=== PATIENT | male | born 1945 | race Two or more races ===

== ENCOUNTER 2024-09-05 16:16 | Inpatient (IN) | payer OTHER, MEDICARE, SELFPAY ==
[2024-09-05] VITALS (20 sets, daily range): BP systolic 145–167; BP diastolic 51–68; PULSE 55–92; TEMP 36.4–36.7; O2SAT 98–100; BMI 16.6; BMI 19.0
--- NOTE | 2024-09-05 17:17 | ECG_ITS ---
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 Measurements Intervals [place] Rate: 68 P: 73 AL: 148 QRS: 78 QRSD: 128 T: 70 QT: 450 QTc: 467 Interpretive Statements 1100 Sinus rhythm 1470 with occasional supraventricular premature complexes 2450 Right bundle branch block 9150 abnormal ECG Compared to ECG 03/13/2017 22:25:42 Right bundle-branch block now present Electronically Signed On 09-06-2024 12:05:11 EDT by JOHN GOODMAN M.D.
[2024-09-05] MEDS: 0.9 % SODIUM CHLORIDE 1,000 ML 1000 ML IV ×2 (17:35→18:39)
--- NOTE | 2024-09-05 17:50 | ED_ITS ---
HPI HPI - General Adult General Chief complaint: Weakness Stated complaint: L KNEE PAIN, SORE THROAT Time Seen by Provider: 09/05/24 16:53 Source: patient and family Mode of arrival: Wheelchair Limitations: altered mental status History of Present Illness HPI narrative: 79-year-old male was brought to emergency room accompanied with his sister. Sister went to do a wellness check on this patient and found him to be soiled in feces which is dried. Patient's house is very unkept son lives with him has multiple cats and does not help take care of this patient. Patient is very quiet he denies feeling unsafe at home but he does very unkept he has bedsores on his bottom and has a new open wound on the left knee you cannot tell me what happened to his knee. His vital signs are stable. He states he had several days of diarrhea. He cannot give me any length of time. Sister that brought him in is very concerned for his wellbeing. Related Data Allergies Allergy/AdvReac Type Severity Reaction Status Date / Time No Known Drug Allergies Allergy Verified 09/05/24 17:26 Review of Systems ROS Status of ROS 10 or more systems reviewed and unremark able except as noted in history and below PFSH PFSH Social History Little interest or pleasure in doing things: not at all Feeling down, depressed, or hopeless: not at all Exam Narrative Exam Narrative: All Systems are negative except as noted/marked.All systems reviewed and otherwise negative Nurses note and vital signs reviewed and patient is not hypoxic. General: The patient appears unkept smells of feces and cat urine. patient lying comfortable on cot Skin: Warm, dry, no pallor noted. bed sore to back and buttock. open wound to left knee Head: Normocephalic, atraumatic Eye: Normal conjunctiva, no drainage, EOMI. PERRL Ears, Nose, Mouth, and Throat: oral mucosa is moist. Nares patent. Mouth without vesicles. Ear canals patent. Tm's without Erythema Cardiovascular: Regular Rate and Rhythm Respiratory: Patient is in no distress, no accessory muscle use, lungs are clear to auscultation, no wheezing, rales or rhonchi Back: non-tender, no CVA tenderness bilaterally to percussion. GI: Normal bowel sounds, no tenderness to palpation, no masses appreciated. No rebound, guarding, or rigidity noted. Musculoskeletal: open wound to left knee 3x 2cm with some induration. The patient has no evidence of calf tenderness, no pitting edema, symmetrical pulses noted bilaterally Neurological: A&O x3 , normal speech Psychiatric: Cooperative Constitutional Vital Signs, click to edit/add: Last Vital Signs Temp 97.6 F 09/05/24 17:11 Pulse 80 09/05/24 19:20 Resp 19 09/05/24 19:20 BP 164/68 H 09/05/24 19:00 Pulse Ox 100 09/05/24 19:20 O2 Del Method Room Air 09/05/24 17:48 Course Vital Signs Vital signs: Vital Signs Temperature 97.6 F 09/05/24 17:11 Pulse Rate 70 09/05/24 17:11 Respiratory Rate 20 09/05/24 17:11 Blood Pressure 152/66 H 09/05/24 17:11 Pulse Oximetry 100 09/05/24 17:11 Oxygen Delivery Method Room Air 09/05/24 17:11 Temperature 97.6 F 09/05/24 17:11 Pulse Rate 80 09/05/24 19:20 Respiratory Rate 19 09/05/24 19:20 Blood Pressure 164/68 H 09/05/24 19:00 Pulse Oximetry 100 09/05/24 19:20 Oxygen Delivery Method Room Air 09/05/24 17:48 Medical Decision Making MDM Narrative Medical decision making narrative: 79-year-old male was brought to emergency room accompanied with his sister. Sister went to do a wellness check on this patient and found him to be soiled in feces which is dried. Patient's house is very unkept son lives with him has multiple cats and does not help take care of this patient. Patient is very quiet he denies feeling unsafe at home but he does very unkept he has bedsores on his bottom and has a new open wound on the left knee you cannot tell me what happened to his knee. His vital signs are stable. He states he had several days of diarrhea. He cannot give me any length of time. Sister that brought him in is very concerned for his wellbeing. Patient arrived to the emergency room accompanied with his sister he was covered in feces and smelled of cat urine. Patient's sister states his house is very unkept. Son lives with him but does not help take care of him. Patient has buttock ulceration that is healed as well as 2 on his back. He also has an open wound on his left knee. X-ray performed today showed no acute abnormality. On arrival IV was established patient's blood work was ordered including CBC CMP troponin lactic acid and CK-MB. BUN is elevated at 50 creatinine is 1.84 his lactate was elevated at 5.0 urine showed a 20-50 WBC with moderate amount of bacteria. Stool occult was negative. Patient was given 2 L of IV fluids, and Rocephin started in the emergency room. human services professional does also need to be consulted in regards to this patient's wellbeing and care. Family members are concerned for his wellbeing. Patient is a [facility] I did attempt to call [facility] they have not called us back for his admission. He will be manage here to the hospital with acute kidney injury, dehydration, UTI. Differential Diagnosis Differential Diagnosis: weakness, diarrhea, adult protective services Medical Records Medical records reviewed: Yes I reviewed the patient's medical records Lab Data Lab results reviewed: Yes I reviewed the patient's lab results Labs: Lab Results 09/05/24 09/05/24 09/05/24 Range/Units 17:30 17:38 19:20 WBC 9.8 (4.0-11.0) 10^3/uL RBC 3.87 L (4.70-6.10) 10^6/uL Hgb 10.5 L (14.0-18.0) g/dL Hct 32.9 L (42.0-54.0) % MCV 85.0 (80.0-94.0) fL MCH 27.1 (25.9-34.0) pg MCHC 31.9 (29.9-35.2) g/dL RDW 17.6 H (11.0-15.0) % Plt Count 296 (150-450) 10^3/uL MPV 11.4 (9.5-13.5) fL Neut % (Auto) 79.4 H (43.0-75.0) % Lymph % (Auto) 13.1 L (20.5-60.0) % [place] % (Auto) 5.9 (1.7-12.0) % Eos % (Auto) 0.8 L (0.9-7.0) % Baso % (Auto) 0.3 (0.2-2.0) % Neut # (Auto) 7.8 H (1.4-6.5) 10^3/uL Lymph # (Auto) 1.3 (1.2-3.8) 10^3/uL [place] # (Auto) 0.6 (0.3-0.8) 10^3/uL Eos # (Auto) 0.1 (0.0-0.7) 10^3/uL Baso # (Auto) 0.0 (0.0-0.1) 10^3/uL Abs Immat Gran (auto) 0.05 H (0.00-0.03) 10^3/uL Imm/Tot Granulo (auto) 0.5 (0.0-0.5) % Sodium 136 (136-145) mmol/L Potassium 3.6 (3.5-5.1) mmol/L Chloride 99 (98-107) mmol/L Carbon Dioxide 21.3 (21.0-32.0) mmol/L Anion Gap 19.3 BUN 50.0 H (7.0-18.0) mg/dL Creatinine 1.84 H (0.70-1.30) mg/dL Est GFR ( Amer) 43 L (>=60 mL/min/1.73m^2) Est GFR (Non-Af Amer) 36 L (>=60 mL/min/1.73m^2) BUN/Creatinine Ratio 27.2 Glucose 324 H (74-106) mg/dL Lactate 5.0 H* (0.4-2.0) mmol/L Calcium 9.0 (8.5-10.1) mg/dL Total Bilirubin 0.4 (0.2-1.0) mg/dL AST 22 (15-37) U/L ALT 24 (16-63) U/L Alkaline Phosphatase 112 (46-116) U/L Total Creatine Kinase 280 (39-308) U/L CK-MB (CK-2) 2.49 (<=3.60) ng/mL Troponin I High Sens 5.3 (4.0-76.1) pg/mL Total Protein 6.8 (6.4-8.2) g/dL Albumin 2.9 L (3.4-5.0) g/dL Globulin 3.9 g/dL Albumin/Globulin Ratio 0.7 Urine Color Lt yellow (YELLOW) Urine Clarity Slightly cloudy A (CLEAR) Urine pH 6.0 (5.0-9.0) Ur Specific [place] <=1.005 A (1.005-1.025) Urine Protein Negative (NEG/TRACE) mg/dL Urine Glucose (UA) >=1000 A (NEGATIVE) mg/dL Urine Ketones Negative (NEGATIVE) mg/dL Urine Occult Blood Trace-i (NEGATIVE) Urine Nitrite Negative (NEGATIVE) Urine Bilirubin Negative (NEGATIVE) Urine Urobilinogen 0.2 (0.2-1.0) EU/dL Ur Leukocyte Esterase Moderate A (NEGATIVE) Urine RBC 0-2 (0-2) #/HPF Urine WBC 20-50 A (NONE SEEN) #/HPF Ur Squamous Epith Cells None seen (NONE/RARE) #/LPF Urine Crystals None seen (None Seen) #/HPF Urine Bacteria Large A (NONE SEEN) #/HPF Urine Casts None seen (NONE SEEN) #/LPF Urine Mucus None seen (NONE SEEN) Ur Culture Indicated? Yes-[facility] [place] Stool Occult Blood Negative Streptococcus Screen 09/05/24 Range/Units 19:28 WBC (4.0-11.0) 10^3/uL RBC (4.70-6.10) 10^6/uL Hgb (14.0-18.0) g/dL Hct (42.0-54.0) % MCV (80.0-94.0) fL MCH (25.9-34.0) pg MCHC (29.9-35.2) g/dL RDW (11.0-15.0) % Plt Count (150-450) 10^3/uL MPV (9.5-13.5) fL Neut % (Auto) (43.0-75.0) % Lymph % (Auto) (20.5-60.0) % [place] % (Auto) (1.7-12.0) % Eos % (Auto) (0.9-7.0) % Baso % (Auto) (0.2-2.0) % Neut # (Auto) (1.4-6.5) 10^3/uL Lymph # (Auto) (1.2-3.8) 10^3/uL [place] # (Auto) (0.3-0.8) 10^3/uL Eos # (Auto) (0.0-0.7) 10^3/uL Baso # (Auto) (0.0-0.1) 10^3/uL Abs Immat Gran (auto) (0.00-0.03) 10^3/uL Imm/Tot Granulo (auto) (0.0-0.5) % Sodium (136-145) mmol/L Potassium (3.5-5.1) mmol/L Chloride (98-107) mmol/L Carbon Dioxide (21.0-32.0) mmol/L Anion Gap BUN (7.0-18.0) mg/dL Creatinine (0.70-1.30) mg/dL Est GFR ( Amer) (>=60 mL/min/1.73m^2) Est GFR (Non-Af Amer) (>=60 mL/min/1.73m^2) BUN/Creatinine Ratio Glucose (74-106) mg/dL Lactate (0.4-2.0) mmol/L Calcium (8.5-10.1) mg/dL Total Bilirubin (0.2-1.0) mg/dL AST (15-37) U/L ALT (16-63) U/L Alkaline Phosphatase (46-116) U/L Total Creatine Kinase (39-308) U/L CK-MB (CK-2) (<=3.60) ng/mL Troponin I High Sens (4.0-76.1) pg/mL Total Protein (6.4-8.2) g/dL Albumin (3.4-5.0) g/dL Globulin g/dL Albumin/Globulin Ratio Urine Color (YELLOW) Urine Clarity (CLEAR) Urine pH (5.0-9.0) Ur Specific [place] (1.005-1.025) Urine Protein (NEG/TRACE) mg/dL Urine Glucose (UA) (NEGATIVE) mg/dL Urine Ketones (NEGATIVE) mg/dL Urine Occult Blood (NEGATIVE) Urine Nitrite (NEGATIVE) Urine Bilirubin (NEGATIVE) Urine Urobilinogen (0.2-1.0) EU/dL Ur Leukocyte Esterase (NEGATIVE) Urine RBC (0-2) #/HPF Urine WBC (NONE SEEN) #/HPF Ur Squamous Epith Cells (NONE/RARE) #/LPF Urine Crystals (None Seen) #/HPF Urine Bacteria (NONE SEEN) #/HPF Urine Casts (NONE SEEN) #/LPF Urine Mucus (NONE SEEN) Ur Culture Indicated? Stool Occult Blood Streptococcus Screen Negative Imaging Data Chest x-ray: Radiologist's impression: ITS Impressions Chest X-Ray 09/05/24 18:05 IMPRESSION: NEGATIVE ACUTE PLEURAL-PARENCHYMAL DISEASE. Impression dictated by: Ru Barreto M.D. 09/05/2024 6:13 PM Dictation Location: [employer]Tell Electronically authenticated by: [id number] Y Date: 09/05/2024 18:13 Knee X-Ray 09/05/24 18:05 IMPRESSION: Joint effusion. Otherwise negative acute osseous abnormality. Impression dictated by: Ru Barreto M.D. 09/05/2024 6:12 PM Dictation Location: [employer] Electronically authenticated by: [id number] Y Date: 09/05/2024 18:12 ECG Data Attestation: ?I have reviewed the pertinent ECG results. Interpretation: 1721 EKG shows a sinus rhythm with a rate of 68 bpm UT interval 148 ms QRS duration 128 ms PVCs noted with right bundle branch block Discharge Plan Discharge Chief Complaint: Weakness Clinical Impression: Dehydration, UTI (urinary tract infection), Acute kidney injury Patient Disposition: Admitted As Inpatient Time of Disposition Decision: 20:03 Condition: Good
[2024-09-05 17:51] LABS: Hematocrit 32.9 % (42.0-54.0); Hemoglobin 10.5 g/dL (14.0-18.0); Immature Granulocytes Abs Auto 0.05 10^3/uL (0.00-0.03); Immature Granulocytes Pct Auto 0.5 % (0.0-0.5); Lymphocytes Absolute Auto 1.3 10^3/uL (1.2-3.8); Mean Corpuscular HGB Conc 31.9 g/dL (29.9-35.2); Mean Corpuscular Hemoglobin 27.1 pg (25.9-34.0); Mean Corpuscular Volume 85.0 fL (80.0-94.0); Platelet Count 296 10^3/uL (150-450); Red Blood Count 3.87 10^6/uL (4.70-6.10); White Blood Count 9.8 10^3/uL (4.0-11.0)
--- NOTE | 2024-09-05 18:05 | XR_ITS ---
[address] [address] Patient Name: JAH CLARK MRN: [id number] date: 1945 Sex: M Assigned Patient Location: ER Current Patient Location: ER Accession/Order Number: [id number] Exam Date: 09/05/2024 18:12 Report Date: 09/05/2024 18:13 At the request of: ZACH LONDON Procedure: XR chest 1V PA CHEST: CLINICAL HISTORY: weakness COMPARISON: None Findings: unremarkable cardiac mediastinal silhouette. Lungs clear. No effusion or pneumothorax. . XR/XR chest 1V IMPRESSION: NEGATIVE ACUTE PLEURAL-PARENCHYMAL DISEASE. Impression dictated by: Ru Barreto M.D. 09/05/2024 6:13 PM Dictation Location: [place] [address] Electronically authenticated by: [id number] Y Date: 09/05/2024 18:13
--- NOTE | 2024-09-05 18:05 | XR_ITS ---
[address] [address] Patient Name: JAH CLARK MRN: [id number] date: 1945 Sex: M Assigned Patient Location: ER Current Patient Location: ER Accession/Order Number: [id number] Exam Date: 09/05/2024 18:11 Report Date: 09/05/2024 18:12 At the request of: ZACH LONDON Procedure: XR knee LT 3V LEFT KNEE - 3 views CLINICAL HISTORY: pain COMPARISON: None FINDINGS: No fractures. No dislocation.. Joint spaces preserved. Small joint effusion. Popliteal artery stent. XR/XR knee LT 3V IMPRESSION: Joint effusion. Otherwise negative acute osseous abnormality. Impression dictated by: Ru Barreto M.D. 09/05/2024 6:12 PM Dictation Location: [place] [address] Electronically authenticated by: [id number] Y Date: 09/05/2024 18:12
[2024-09-05 18:10] LABS: Alanine Aminotransferase 24 U/L (16-63); Albumin Globulin Ratio 0.7; Albumin Level 2.9 g/dL (3.4-5.0); Alkaline Phosphatase 112 U/L (46-116); Anion Gap 19.3; Aspartate Amino Transferase 22 U/L (15-37); Blood Urea Nitrogen 50.0 mg/dL (7.0-18.0); Calcium 9.0 mg/dL (8.5-10.1); Carbon Dioxide 21.3 mmol/L (21.0-32.0); Chloride 99 mmol/L (98-107); Estimated GFR (African America 43 (>=60 mL/min/1.73m^2); Estimated GFR (Non-African Ame 36 (>=60 mL/min/1.73m^2); Globulin 3.9 g/dL; Glucose 324 mg/dL (74-106); Potassium 3.6 mmol/L (3.5-5.1); Sodium 136 mmol/L (136-145); Total Protein 6.8 g/dL (6.4-8.2)
[2024-09-05 18:17] LABS: Lactate/Lactic Acid 5.0 mmol/L (0.4-2.0)
[2024-09-05 19:26] LABS: Glucose Urine UA >=1000 mg/dL (NEGATIVE)
[2024-09-05 19:33] LABS: Cast Seen? NONE SEEN #/LPF (NONE SEEN); Crystals Seen? None Seen #/HPF (None Seen); Urine Culture Indicated YES-FRMC
[2024-09-05 19:33] LABS: Creatine Kinase 280 U/L (39-308)
[2024-09-05 20:37] LABS: Thyroid Stimulating Hormone 0.777 uIU/mL (0.358-3.740)
[2024-09-05 20:43] LABS: Lactate/Lactic Acid 2.7 mmol/L (0.4-2.0)
--- NOTE | 2024-09-05 21:01 | PC.NURSE ---
Patient states gave his sister the money he had in his wallet. Wallet with patient
[2024-09-05] MEDS: HEPARIN SODIUM (PORCINE) 5,000 UNIT/ML VIAL 5000 UNIT SUBQ (22:22)
[2024-09-05] MEDS: 0.9 % SODIUM CHLORIDE 1,000 ML 125 ML IV (22:22)
[2024-09-06] VITALS (11 sets, daily range): BP systolic 113–164; BP diastolic 51–75; PULSE 58–82; TEMP 36.4–36.8; O2SAT 82–100
[2024-09-06] MEDS: 0.9 % SODIUM CHLORIDE 1,000 ML 125 ML IV (05:48)
[2024-09-06 06:44] LABS: Hematocrit 28.0 % (42.0-54.0); Hemoglobin 8.7 g/dL (14.0-18.0); Mean Corpuscular HGB Conc 31.1 g/dL (29.9-35.2); Mean Corpuscular Hemoglobin 26.6 pg (25.9-34.0); Mean Corpuscular Volume 85.6 fL (80.0-94.0); Platelet Count 196 10^3/uL (150-450); Red Blood Count 3.27 10^6/uL (4.70-6.10); White Blood Count 4.8 10^3/uL (4.0-11.0)
[2024-09-06] MEDS: ACETAMINOPHEN 325 MG TABLET 650 MG PO (06:50)
[2024-09-06 07:02] LABS: Anion Gap 14.8; Blood Urea Nitrogen 29.0 mg/dL (7.0-18.0); Calcium 7.7 mg/dL (8.5-10.1); Carbon Dioxide 24.3 mmol/L (21.0-32.0); Chloride 111 mmol/L (98-107); Estimated GFR (African America >60 (>=60 mL/min/1.73m^2); Estimated GFR (Non-African Ame 59 (>=60 mL/min/1.73m^2); Glucose 224 mg/dL (74-106); Potassium 3.1 mmol/L (3.5-5.1); Sodium 147 mmol/L (136-145)
--- NOTE | 2024-09-06 07:33 | P.HP_ITS ---
HPI H&P: HPI History of Present Illness Chief complaint: DEHYDRATION UTI VARGHESE Narrative: Patient brought into the emergency room by family member concern for his wellbeing, patient was found to have multiple bedsores and soiled in feces. When I saw patient up in the medical surgical floor, resting comfortably bed eating and enjoying his breakfast without specific complaint Opioid HPI Opioid Management Most Recent Pain and Opioid Data: Last Pain Scale 8 Today, 08:08 Last Pain Assessment 09/05/24, 21:52 Last MAR Pain Assessment Today, 06:50 Last ORT Total Score 0 09/05/24, 20:46 Last ORT Risk Category Low Risk 09/05/24, 20:46 PFSH PFSH Social History Little interest or pleasure in doing things: not at all Feeling down, depressed, or hopeless: not at all Meds Home Medications and Allergies Allergies Allergy/AdvReac Type Severity Reaction Status Date / Time No Known Drug Allergies Allergy Verified 09/05/24 17:26 Exam Constitutional Vital Signs, click to edit/add: Last Vital Signs Temp 97.5 F L 09/06/24 04:00 Pulse 73 09/06/24 06:00 Resp 18 09/06/24 04:00 BP 116/57 09/06/24 04:00 Pulse Ox 82 L 09/06/24 04:00 O2 Del Method Room Air 09/06/24 04:00 Documenting provider has reviewed patient's vital signs: yes Common normals: no apparent distress Chest Common normals: inspection of chest normal Respiratory Common normals: normal respiratory effort, no retractions and clear to auscultation bilaterally Cardio Common normals: regular rate, regular rhythm and no murmurs GI Common normals: Normal to inspection, nondistended, normoactive bowel sounds present, soft to palpation and no hepatosplenomegaly Extremity Common normals: no clubbing, cyanosis or edema; abnormal to inspection (Sore area on knee) Results Labs Labs: Short CBC 09/05/24 09/06/24 Range/Units 17:30 06:07 WBC 9.8 4.8 (4.0-11.0) 10^3/uL Hgb 10.5 L 8.7 L (14.0-18.0) g/dL Hct 32.9 L 28.0 L (42.0-54.0) % Plt Count 296 196 (150-450) 10^3/uL BMP 06/27/25 06/28/25 17:30 06:07 Sodium 136 147 H Potassium 3.6 3.1 L Chloride 99 111 H Carbon Dioxide 21.3 24.3 BUN 50.0 H 29.0 H Creatinine 1.84 H 1.20 Glucose 324 H 224 H Calcium 9.0 7.7 L Cardiac Enzymes 09/05/24 Range/Units 17:30 Total Creatine Kinase 280 (39-308) U/L CK-MB (CK-2) 2.49 (<=3.60) ng/mL Liver Function 09/05/24 Range/Units 17:30 Total Bilirubin 0.4 (0.2-1.0) mg/dL AST 22 (15-37) U/L ALT 24 (16-63) U/L Alkaline Phosphatase 112 (46-116) U/L Albumin 2.9 L (3.4-5.0) g/dL Urine 09/05/24 Range/Units 19:20 Urine Color Lt yellow (YELLOW) Urine Clarity Slightly cloudy A (CLEAR) Urine pH 6.0 (5.0-9.0) Ur Specific [place] <=1.005 A (1.005-1.025) Urine Protein Negative (NEG/TRACE) mg/dL Urine Glucose (UA) >=1000 A (NEGATIVE) mg/dL Assessment and Plan Assessment and Plan (1) Acute kidney injury: (2) UTI (urinary tract infection): (3) Dehydration: (4) Lactic acidosis: (5) Diabetes mellitus: (6) Hypokalemia: (7) Hypernatremia: (8) Iron deficiency anemia: (9) Coronary artery disease: Plan Admission findings: Hypertension, acute kidney injury, baseline creatinine of 1.2, admission creatinine of 1.84 which is 153.3% above baseline with decreased urine output being acute kidney injury stage I, positive lactic acidosis and positive UA consistent with severe sepsis Severe sepsis secondary to acute UTI-lactate improved with initial fluid bolus, maintain current antibiotics, added levofloxacin to the Rocephin, blood cultures urine cultures pending Uncontrolled hypertension-adjust medications Iron deficiency anemia-check occult blood if continues to decline Hypernatremia likely secondary to fluid resuscitation-will change IV fluids Hypokalemia-supplement Diabetes mellitus-insulin sliding scale Coronary artery disease-stenting in the past-no symptoms Admission status: Patient admitted with severe sepsis without shock, secondary to UTI and complicated by poorly controlled diabetes mellitus, medically necessary treatment will span 2 midnights as the is already failed initial ob servational time., Likely 3-4 more day hospitalization, inpatient status
[2024-09-06 07:46] LABS: Magnesium 1.3 mg/dL (1.8-2.4)
[2024-09-06] MEDS: ENSURE HP 237 ML LIQUID PO ×2 (09:04→21:26)
[2024-09-06] MEDS: INSULIN ASPART 300 UNIT/3 ML PEN SUBQ ×4 (09:04→21:27)
[2024-09-06] MEDS: HEPARIN SODIUM (PORCINE) 5,000 UNIT/ML VIAL 5000 UNIT SUBQ ×2 (09:08→21:26)
[2024-09-06] MEDS: PANTOPRAZOLE SODIUM 40 MG VIAL IV (09:09)
[2024-09-06] MEDS: POTASSIUM CHLORIDE 10 MEQ ER TABLET 20 MEQ PO ×2 (09:09→21:25)
[2024-09-06] MEDS: LEVOFLOXACIN IN DEXTROSE 5 % 750 MG/150 ML PREMIX 100 MG IV (09:09)
[2024-09-06] MEDS: MAGNESIUM SULFATE IN WATER 4 GM/100 ML PIGGYBACK IV (10:42)
[2024-09-06] MEDS: ASPIRIN 81 MG TAB.CHEW PO (11:00)
[2024-09-06] MEDS: CLOPIDOGREL BISULFATE 75 MG TABLET PO (11:00)
[2024-09-06] MEDS: LISINOPRIL 20 MG TABLET PO (11:00)
[2024-09-06] MEDS: FERROUS SULFATE 325 MG TABLET PO (11:00)
[2024-09-06] MEDS: GLIPIZIDE 5 MG TABLET PO (11:00)
[2024-09-06] MEDS: METOPROLOL TARTRATE 100 MG TABLET PO ×2 (11:00→21:25)
[2024-09-06] MEDS: CHOLECALCIFEROL (VITAMIN D3) 25 MCG/1,000 UNITS TABLET 50 MCG PO (11:01)
[2024-09-06] MEDS: ACETAMINOPHEN 500 MG TABLET 1000 MG PO ×2 (17:09→21:25)
[2024-09-06] MEDS: METFORMIN HCL 500 MG TABLET 1000 MG PO (17:09)
[2024-09-06] MEDS: MAGNESIUM OXIDE 400 MG TABLET PO (21:25)
[2024-09-06] MEDS: ATORVASTATIN CALCIUM 40 MG TABLET 80 MG PO (21:25)
[2024-09-07] VITALS (9 sets, daily range): BP systolic 113–150; BP diastolic 56–67; PULSE 60–98; TEMP 36.3–36.9; O2SAT 92–98
[2024-09-07 06:01] LABS: Hematocrit 29.7 % (42.0-54.0); Hemoglobin 9.1 g/dL (14.0-18.0); Immature Granulocytes Abs Auto 0.04 10^3/uL (0.00-0.03); Immature Granulocytes Pct Auto 0.7 % (0.0-0.5); Lymphocytes Absolute Auto 1.5 10^3/uL (1.2-3.8); Mean Corpuscular HGB Conc 30.6 g/dL (29.9-35.2); Mean Corpuscular Hemoglobin 26.8 pg (25.9-34.0); Mean Corpuscular Volume 87.4 fL (80.0-94.0); Platelet Count 211 10^3/uL (150-450); Red Blood Count 3.40 10^6/uL (4.70-6.10); White Blood Count 5.6 10^3/uL (4.0-11.0)
[2024-09-07 06:17] LABS: Alanine Aminotransferase 17 U/L (16-63); Albumin Globulin Ratio 0.7; Albumin Level 2.1 g/dL (3.4-5.0); Alkaline Phosphatase 82 U/L (46-116); Anion Gap 15.9; Aspartate Amino Transferase 13 U/L (15-37); Blood Urea Nitrogen 21.0 mg/dL (7.0-18.0); Calcium 8.5 mg/dL (8.5-10.1); Carbon Dioxide 23.9 mmol/L (21.0-32.0); Chloride 107 mmol/L (98-107); Estimated GFR (African America >60 (>=60 mL/min/1.73m^2); Estimated GFR (Non-African Ame >60 (>=60 mL/min/1.73m^2); Globulin 3.1 g/dL; Glucose 265 mg/dL (74-106); Magnesium 1.5 mg/dL (1.8-2.4); Potassium 4.8 mmol/L (3.5-5.1); Sodium 142 mmol/L (136-145); Total Protein 5.2 g/dL (6.4-8.2)
--- NOTE | 2024-09-07 08:48 | P.PN_ITS ---
Progress Note: Subjective Subjective Interval history: No specific complaints this morning. Eating well. Exam Constitutional Vital Signs, click to edit/add: Last Vital Signs Temp 97.8 F 09/07/24 07:25 Pulse 60 09/07/24 07:25 Resp 16 09/07/24 07:25 BP 113/64 09/07/24 07:25 Pulse Ox 96 09/07/24 07:25 O2 Del Method Room Air 09/07/24 07:25 Documenting provider has reviewed patient's vital signs: yes Common normals: no apparent distress Chest Common normals: inspection of chest normal Respiratory Common normals: normal respiratory effort, no retractions and no use of accessory muscles Auscultation: no crackles, no rales, no rhonchi and no wheezes Cardio Common normals: regular rate, regular rhythm and no murmurs GI Common normals: Normal to inspection, nondistended, normoactive bowel sounds present, soft to palpation and non-tender Extremity Common normals: no clubbing, cyanosis or edema; abnormal to inspection (Sore area on knee) Progress Note: Objective Labs Labs: Short CBC 09/07/24 Range/Units 05:34 WBC 5.6 (4.0-11.0) 10^3/uL Hgb 9.1 L (14.0-18.0) g/dL Hct 29.7 L (42.0-54.0) % Plt Count 211 (150-450) 10^3/uL BMP 09/07/24 05:34 Sodium 142 Potassium 4.8 Chloride 107 Carbon Dioxide 23.9 BUN 21.0 H Creatinine 0.93 Glucose 265 H Calcium 8.5 Liver Function 09/07/24 Range/Units 05:34 Total Bilirubin 0.3 (0.2-1.0) mg/dL Direct Bilirubin 0.1 (0.0-0.2) mg/dL AST 13 L (15-37) U/L ALT 17 (16-63) U/L Alkaline Phosphatase 82 (46-116) U/L Albumin 2.1 L (3.4-5.0) g/dL Progress Note: A&P Assessment and Plan (1) Acute kidney injury: (2) UTI (urinary tract infection): (3) Dehydration: (4) Lactic acidosis: (5) Diabetes mellitus: (6) Hypokalemia: (7) Hypernatremia: (8) Iron deficiency anemia: (9) Coronary artery disease: Plan Admission findings: Hypertension, acute kidney injury, baseline creatinine of 1.2, admission creatinine of 1.84 which is 153.3% above baseline with decreased urine output being acute kidney injury stage I, positive lactic acidosis and positive UA consistent with severe sepsis Severe sepsis secondary to acute UTI-lactate improved with initial fluid bolus, maintain current antibiotics, culture results should be back tomorrow Uncontrolled hypertension-adjust medications-improved Iron deficiency anemia-check occult blood if continues to decline-improved Hypernatremia likely secondary to fluid resuscitation-will change IV fluids- resolved to normal [id number] Diabetes mellitus-insulin sliding scale, increased today good appetite Coronary artery disease-stenting in the past-no symptoms Admission status: Patient admitted with severe sepsis without shock, secondary to UTI and complicated by poorly controlled diabetes mellitus, medically necessary treatment will span 2 midnights as the is already failed initial observational time., Likely 3-4 more day hospitalization, inpatient status
[2024-09-07] MEDS: PANTOPRAZOLE SODIUM 40 MG VIAL IV (09:27)
[2024-09-07] MEDS: METFORMIN HCL 500 MG TABLET 1000 MG PO ×2 (09:27→17:30)
[2024-09-07] MEDS: ASCORBIC ACID 500 MG TABLET 250 MG PO (09:27)
[2024-09-07] MEDS: GLIPIZIDE 5 MG TABLET PO (09:27)
[2024-09-07] MEDS: ASPIRIN 81 MG TAB.CHEW PO (09:28)
[2024-09-07] MEDS: MAGNESIUM OXIDE 400 MG TABLET PO ×2 (09:28→21:25)
[2024-09-07] MEDS: POTASSIUM CHLORIDE 10 MEQ ER TABLET 20 MEQ PO ×2 (09:28→21:26)
[2024-09-07] MEDS: ACETAMINOPHEN 500 MG TABLET 1000 MG PO (09:28)
[2024-09-07] MEDS: METOPROLOL TARTRATE 100 MG TABLET PO ×2 (09:29→21:25)
[2024-09-07] MEDS: FERROUS SULFATE 325 MG TABLET PO (09:29)
[2024-09-07] MEDS: CHOLECALCIFEROL (VITAMIN D3) 25 MCG/1,000 UNITS TABLET 50 MCG PO (09:29)
[2024-09-07] MEDS: LISINOPRIL 20 MG TABLET PO (09:29)
[2024-09-07] MEDS: CLOPIDOGREL BISULFATE 75 MG TABLET PO (09:29)
[2024-09-07] MEDS: HEPARIN SODIUM (PORCINE) 5,000 UNIT/ML VIAL 5000 UNIT SUBQ ×2 (09:30→21:26)
[2024-09-07] MEDS: ENSURE HP 237 ML LIQUID PO ×2 (09:30→21:27)
[2024-09-07] MEDS: INSULIN GLARGINE 300 UNIT/3 ML INSULN.PEN 10 UNIT SQ (09:30)
[2024-09-07] MEDS: INSULIN ASPART 300 UNIT/3 ML PEN SUBQ ×2 (12:35→21:35)
[2024-09-07] MEDS: ATORVASTATIN CALCIUM 40 MG TABLET 80 MG PO (21:40)
[2024-09-08 04:00] VITALS: BP 126/63; PULSE 62; TEMP 36.4; O2SAT 93
[2024-09-08 05:50] LABS: Hematocrit 29.6 % (42.0-54.0); Hemoglobin 9.2 g/dL (14.0-18.0); Immature Granulocytes Abs Auto 0.03 10^3/uL (0.00-0.03); Immature Granulocytes Pct Auto 0.4 % (0.0-0.5); Lymphocytes Absolute Auto 1.6 10^3/uL (1.2-3.8); Mean Corpuscular HGB Conc 31.1 g/dL (29.9-35.2); Mean Corpuscular Hemoglobin 27.0 pg (25.9-34.0); Mean Corpuscular Volume 86.8 fL (80.0-94.0); Platelet Count 214 10^3/uL (150-450); Red Blood Count 3.41 10^6/uL (4.70-6.10); White Blood Count 6.9 10^3/uL (4.0-11.0)
[2024-09-08 06:14] LABS: Anion Gap 13.5; Blood Urea Nitrogen 18.0 mg/dL (7.0-18.0); Calcium 8.9 mg/dL (8.5-10.1); Carbon Dioxide 26.4 mmol/L (21.0-32.0); Chloride 106 mmol/L (98-107); Estimated GFR (African America >60 (>=60 mL/min/1.73m^2); Estimated GFR (Non-African Ame >60 (>=60 mL/min/1.73m^2); Glucose 179 mg/dL (74-106); Potassium 4.9 mmol/L (3.5-5.1); Sodium 141 mmol/L (136-145)
--- NOTE | 2024-09-08 06:37 | P.DS_ITS ---
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 Has provider been notified: No Reason for consult:: Other Other reason:: d/c planning Occupational Therapy Eval and Treat Routine Reason for consultation: weakness Has provider been notified: No Physical Therapy Eval and Treat Routine Reason for consultation: weakness Has provider been notified: No 09/06/24 09:50 Consult to Wound Care Routine Consulting Provider: Darío Menon Reason for consultation: multiple Has provider been notified: No DS: Diagnosis Discharge Diagnosis (1) Acute kidney injury: (2) UTI (urinary tract infection): (3) Dehydration: (4) Lactic acidosis: (5) Diabetes mellitus: (6) Hypokalemia: (7) Hypernatremia: (8) Iron deficiency anemia: (9) Coronary artery disease: Plan Admission findings: Hypertension, acute kidney injury, baseline creatinine of 1.2, admission creatinine of 1.84 which is 153.3% above baseline with decreased urine output being acute kidney injury stage I, positive lactic acidosis and positive UA consistent with severe sepsis Severe sepsis secondary to acute UTI-improving in the discharge Uncontrolled hypertension-improving at the time of discharge Iron deficiency anemia-improving at the time of discharge Hypernatremia likely secondary to fluid resuscitation-resolved Rkpiutxuhgb-jhhxwphfsi-ooiaxiyj Diabetes mellitus-insulin sliding scale, stable today will discharge Coronary artery disease-stenting in the past-no symptoms Admission status: Patient admitted with severe sepsis without shock, secondary to UTI and complicated by poorly controlled diabetes mellitus, medically necessary treatment will span 2 midnights as the is already failed initial observational time., Likely 3-4 more day hospitalization, inpatient status DS: Summary Hospital Course Hospital Course: Patient was seen and evaluated in the emergency room with Hypertension, acute kidney injury, baseline creatinine of 1.2, admission creatinine of 1.84 which is 153.3% above baseline with decreased urine output being acute kidney injury stage I, positive lactic acidosis and positive UA consistent with severe sepsis. Treated with IV antibiotics, cultures are still pending, sugars much improved with medication adjustments, if patient is ambulating safely today with physical therapy and can have a different living arrangement he can be discharged to home in improving condition. Medications see list. Follow-up with his PCP within the next week. Time Spent with Patient Time attestation: Total time spent providing and/or coordinating discharge services: Exam Constitutional Vital Signs, click to edit/add: Last Vital Signs Temp 97.6 F 09/08/24 04:00 Pulse 62 09/08/24 04:00 Resp 18 09/08/24 04:00 BP 126/63 09/08/24 04:00 Pulse Ox 93 L 09/08/24 04:00 O2 Del Method Room Air 09/08/24 04:00 Documenting provider has reviewed patient's vital signs: yes Common normals: no apparent distress Chest Common normals: inspection of chest normal Respiratory Common normals: normal respiratory effort, no retractions and clear to auscultation bilaterally Cardio Common normals: regular rate, regular rhythm and no murmurs Rate: not tachycardic Rhythm: regular rhythm GI Common normals: Normal to inspection, nondistended, normoactive bowel sounds present, soft to palpation, no hepatosplenomegaly and no masses Extremity Common normals: no clubbing, cyanosis or edema; abnormal to inspection (Sore area on knee) DS: Data Data Completed and Pending Labs on day of discharge: Labs from last 24 hours 09/08/24 09/07/24 09/07/24 05:21 21:20 16:37 WBC 6.9 RBC 3.41 L Hgb 9.2 L Hct 29.6 L MCV 86.8 MCH 27.0 MCHC 31.1 RDW 17.8 H Plt Count 214 MPV 11.6 Neut % (Auto) 68.2 Lymph % (Auto) 23.1 [place] % (Auto) 6.1 Eos % (Auto) 1.8 Baso % (Auto) 0.4 Neut # (Auto) 4.7 Lymph # (Auto) 1.6 [place] # (Auto) 0.4 Eos # (Auto) 0.1 Baso # (Auto) 0.0 Abs Immat Gran (auto) 0.03 Imm/Tot Granulo (auto) 0.4 Sodium 141 Potassium 4.9 Chloride 106 Carbon Dioxide 26.4 Anion Gap 13.5 BUN 18.0 Creatinine 0.79 Est GFR ( Amer) >60 Est GFR (Non-Af Amer) >60 BUN/Creatinine Ratio 22.8 Glucose 179 H Calcium 8.9 POC Glucose 194 H 98 09/07/24 09/07/24 09/07/24 11:48 11:44 07:32 WBC RBC Hgb Hct MCV MCH MCHC RDW Plt Count MPV Neut % (Auto) Lymph % (Auto) [place] % (Auto) Eos % (Auto) Baso % (Auto) Neut # (Auto) Lymph # (Auto) [place] # (Auto) Eos # (Auto) Baso # (Auto) Abs Immat Gran (auto) Imm/Tot Granulo (auto) Sodium Potassium Chloride Carbon Dioxide Anion Gap BUN Creatinine Est GFR ( Amer) Est GFR (Non-Af Amer) BUN/Creatinine Ratio Glucose Calcium POC Glucose 314 H 435 H 203 H Preliminary micro results at discharge 09/05/24 19:20 Urine Culture - Preliminary Urine,Clean Catch Pending - Specimen sent to [facility] Discharge Plan Discharge Disposition: Home, Self-Care Condition: Good Discharge Medications: New cefdinir 300 mg capsule 600 mg PO DAILY Qty: 20 0RF Continued ascorbic acid (vitamin C) [Vitamin C] 250 mg tablet 250 mg PO DAILY aspirin 81 mg tablet 81 mg PO DAILY atorvastatin 80 mg tablet 80 mg PO DAILY cholecalciferol (vitamin D3) [Vitamin D3] 50 mcg (2,000 unit) tablet 50 mcg PO DAILY clopidogrel 75 mg tablet 75 mg PO DAILY cyanocobalamin (vitamin B-12) [Vitamin B-12] 1,000 mcg tablet 1,000 mcg PO DAILY Jardiance 25 mg tablet 25 mg PO DAILY ferrous sulfate 325 mg (65 mg iron) tablet 325 mg PO DAILY glipizide 5 mg tablet 5 mg PO DAILY insulin glargine 100 unit/mL solution 10 unit subcut DAILY ketotifen fumarate 0.025 % (0.035 %) drops 1 drp ophthalmic (eye) BID Rx Instructions: administer at least 8 hours apart lisinopril 20 mg tablet 20 mg PO DAILY magnesium oxide 400 mg magnesium tablet 800 mg PO BID metformin 1,000 mg tablet 1,000 mg PO BID metoprolol tartrate 100 mg tablet 100 mg PO BID omeprazole 20 mg capsule,delayed release(DR/EC) 40 mg PO BID Print Language: Georgian Forms: Portal Instructions
--- NOTE | 2024-09-08 08:12 | CM.NOTE ---
Rounds made with Dr. Lin, will speak with family regarding discharge planning. SW updated and will reach out. PT does recommend skilled therapy at discharge.
[2024-09-08 08:14] VITALS: BP 160/68; PULSE 66; TEMP 36.8; O2SAT 99
[2024-09-08] MEDS: PANTOPRAZOLE SODIUM 40 MG VIAL IV (08:36)
[2024-09-08] MEDS: ENSURE HP 237 ML LIQUID PO ×2 (08:36→21:15)
[2024-09-08] MEDS: METOPROLOL TARTRATE 100 MG TABLET PO ×2 (08:36→21:17)
[2024-09-08] MEDS: ASCORBIC ACID 500 MG TABLET 250 MG PO (08:36)
[2024-09-08] MEDS: FERROUS SULFATE 325 MG TABLET PO (08:37)
[2024-09-08] MEDS: CHOLECALCIFEROL (VITAMIN D3) 25 MCG/1,000 UNITS TABLET 50 MCG PO (08:37)
[2024-09-08] MEDS: METFORMIN HCL 500 MG TABLET 1000 MG PO ×2 (08:37→16:17)
[2024-09-08] MEDS: INSULIN GLARGINE 300 UNIT/3 ML INSULN.PEN 10 UNIT SQ (08:37)
[2024-09-08] MEDS: MAGNESIUM OXIDE 400 MG TABLET PO ×2 (08:37→21:17)
[2024-09-08] MEDS: ASPIRIN 81 MG TAB.CHEW PO (08:37)
[2024-09-08] MEDS: HEPARIN SODIUM (PORCINE) 5,000 UNIT/ML VIAL 5000 UNIT SUBQ ×2 (08:37→21:15)
[2024-09-08] MEDS: GLIPIZIDE 5 MG TABLET PO (08:37)
[2024-09-08] MEDS: POTASSIUM CHLORIDE 10 MEQ ER TABLET 20 MEQ PO ×2 (08:37→21:17)
[2024-09-08] MEDS: INSULIN ASPART 300 UNIT/3 ML PEN SUBQ ×3 (08:38→21:16)
[2024-09-08] MEDS: LISINOPRIL 20 MG TABLET PO (08:38)
[2024-09-08] MEDS: CLOPIDOGREL BISULFATE 75 MG TABLET PO (08:38)
[2024-09-08] MEDS: LEVOFLOXACIN IN DEXTROSE 5 % 750 MG/150 ML PREMIX 100 MG IV (08:43)
--- NOTE | 2024-09-08 08:51 | W.PM.WC ---
Wound Consult Note Assessment and Plan (1) Acute kidney injury: (2) UTI (urinary tract infection): (3) Dehydration: (4) Lactic acidosis: (5) Diabetes mellitus: (6) Hypokalemia: (7) Hypernatremia: (8) Iron deficiency anemia: (9) Coronary artery disease: Plan Consult: Multiple pressure injuries and left knee ulcer Patient from home with multiple pressure injuries (coccyx, bilateral hips, right back) and left knee ulcer of unknown origin. Patient states he does not know how long he has had skin injuries to his back/hips and does not know how he got the ulcer to his left knee. Patient states he sleeps on a couch at home. I was unable to take photos due to network error per med/surg iPad. Will have bedside RN take photos with next assessment network problems are resolved at that time. Patient states areas are sore but not too painful . He tolerates assessment of skin well and is able to assist with turning side to side. His bony prominences are pronounced due to patient's low BMI. He has Deep Tissue injury to right back, coccyx, bilateral hips. Skin is intact to bilateral hips. Skin to back and coccyx has a shear/friction component as well. Left knee is 100% intact yellow/black eschar with marked red erythema to periwound. No drainage noted. Erythema has not traveled outside marking. Recommendations: Waffle mattress overlay Waffle seat cushion Reposition frequently Xeroform gauze to left knee daily. Secure with afsaneh wrap Mepilex border foam dressing to right back, bilateral hips and coccyx. Peel back to assess every shift, change after 3 days or when soiled. Thin layer of triad to friction/sheared skin if begins to drain. Call [phone] with any questions or concerns. See wound assessment below Wound Assessment Wound Right Back: Wound Type: Pressure Injury Wound Staging: Unstageable (Deep Tissue Injury (2 areas measured as one due to proximity)) Length: 5 Width: 5 Depth: 0 Wound Margins Description: Indistinct (dark, nonblanching ecchymosis with some areas of friction/shear) Surrounding Tissue Appearance: [place] (WNL) Surrounding Tissue Temperature: warm (WNL) Drainage Amount: None Primary Dressing: Mepilex border dressing Were photos of the wound(s) taken and uploaded to the chart?: No Left Hip: Wound Type: Pressure Injury Wound Staging: Unstageable (Deep Tissue Injury) Length: 6 Width: 3 Depth: 0 Wound Margins Description: Indistinct (dark, nonblanching, ecchymosis) Surrounding Tissue Appearance: [place] (WNL) Surrounding Tissue Temperature: warm (WNL) Drainage Amount: None Secondary Dressing: Mepilex border dressing Right Hip: Wound Type: Pressure Injury Wound Staging: Unstageable (Deep Tissue Injury) Length: 2.5 Width: 2 Depth: 0 Wound Margins Description: Indistinct (dark, nonblanching, ecchymosis) Surrounding Tissue Appearance: [place] (WNL) Surrounding Tissue Temperature: warm (WNL) Drainage Amount: None Primary Dressing: Mepliex border dressing Left Knee: Wound Type: unknown origin Length: 4 Width: 1.5 Depth: 0 Wound Bed Appearance: Eschar Percentage of Eschar (Black): 50 Percentage of Eschar (Yellow): 50 Wound Margins Description: Well Defined Surrounding Tissue Appearance: Dark Red (Marked area of erythema) Surrounding Tissue Temperature: warm Drainage Amount: None Primary Dressing: xeroform Secondary Dressing: secure with afsaneh wrap Coccyx: Wound Type: Pressure Injury Wound Staging: Unstageable (Deep Tissue Injury) Length: 5 Width: 4 Depth: 0 Wound Margins Description: Indistinct (dark, nonblanching with friction/shear scattered) Surrounding Tissue Appearance: [place] (WNL) Surrounding Tissue Temperature: warm (WNL) Drainage Amount: None Primary Dressing: Mepilex border sacral dressing
--- NOTE | 2024-09-08 09:42 | SWNOTE1 ---
ISAEL and I met with pt in room. Pt is from home and lives with his son. Pt uses a cane at home. Pt does not have any services coming into home currently. Pt voiced he did have home health in the past through the [place]. SW discussed with pt recommendation from PT to go to SNF. Pt voiced he would like to go the [facility]. Pt voiced he is okay with using his [employer] Medicare for skilled. SW did let pt know the only other facility who contracts with the [place] is in [place]. Pt voiced understanding and would like to stay in the area with [facility]. SW did ask pt if it was okay to call his sister to update her, pt was okay with this. SW faxed referral to [facility].
--- NOTE | 2024-09-08 10:04 | P.PN_ITS ---
Progress Note: Subjective Subjective Interval history: No complaints this morning, ambulating slowly, has not worked with physical therapy states was not out of bed yesterday Exam Constitutional Vital Signs, click to edit/add: Last Vital Signs Temp 98.2 F 09/08/24 08:14 Pulse 66 09/08/24 08:14 Resp 16 09/08/24 08:14 BP 160/68 H 09/08/24 08:14 Pulse Ox 99 09/08/24 08:14 O2 Del Method Room Air 09/08/24 08:14 Documenting provider has reviewed patient's vital signs: yes Common normals: no apparent distress Chest Common normals: inspection of chest normal Respiratory Common normals: normal respiratory effort and clear to auscultation bilaterally Auscultation: no crackles, no rales, no rhonchi and no wheezes Cardio Common normals: regular rate, regular rhythm, S1 normal heart sound, S2 normal heart sound and no murmurs GI Common normals: Normal to inspection, nondistended, normoactive bowel sounds present, soft to palpation and non-tender Extremity Common normals: no clubbing, cyanosis or edema; abnormal to inspection (Sore area on knee) Progress Note: Objective Labs Labs: Short CBC 09/08/24 Range/Units 05:21 WBC 6.9 (4.0-11.0) 10^3/uL Hgb 9.2 L (14.0-18.0) g/dL Hct 29.6 L (42.0-54.0) % Plt Count 214 (150-450) 10^3/uL BMP 09/08/24 05:21 Sodium 141 Potassium 4.9 Chloride 106 Carbon Dioxide 26.4 BUN 18.0 Creatinine 0.79 Glucose 179 H Calcium 8.9 Progress Note: A&P Assessment and Plan (1) Acute kidney injury: (2) UTI (urinary tract infection): (3) Dehydration: (4) Lactic acidosis: (5) Diabetes mellitus: (6) Hypokalemia: (7) Hypernatremia: (8) Iron deficiency anemia: (9) Coronary artery disease: Plan Admission findings: Hypertension, acute kidney injury, baseline creatinine of 1.2, admission creatinine of 1.84 which is 153.3% above baseline with decreased urine output being acute kidney injury stage I, positive lactic acidosis and positive UA consistent with severe sepsis Severe sepsis secondary to acute UTI-lactate improved with initial fluid bolus, culture pending, maintain current antibiotics Uncontrolled hypertension-improved this morning Iron deficiency anemia-improved slightly this morning Hypernatremia likely secondary to fluid resuscitation-resolved Keclbfagerh-memmqlecbl-qydogbjx Diabetes mellitus-insulin sliding scale,-sugars improved with adjustment in dosing Coronary artery disease-stenting in the past-no symptoms Generalized weakness secondary to the sepsis as outlined above, patient is a excellent rehabilitation candidate, highly motivated for returning to home Admission status: Patient admitted with severe sepsis without shock, secondary to UTI and complicated by poorly controlled diabetes mellitus, medically necessary treatment will span 2 midnights as the is already failed initial observational time., Likely 3-4 more day hospitalization, inpatient status
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
--- NOTE | 2024-09-08 11:21 | SWNOTE1 ---
SW spoke to [facility] and they are able to accept pt, but had questions about senior living plan. SW let Darío at [facility] know that the pt's sister is concerned about him returning home. SW spoke to sister about this and they are thinking possibly VA home in [place]. SW also spoke to them about [facility], but pt wanted to stay closer to home. SW did ask Darío if [facility] in [place] takes VA benefits? She voiced they do not on [facility]. SW to speak with pt again about going there. 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 SW to keep [facility] updated.
--- NOTE | 2024-09-08 12:10 | CM.NOTE ---
Important Message From Medicare discussed with pt, pt verbalizes understanding and signs paperwork. Original given to pt and copy placed in pt's chart.
--- NOTE | 2024-09-08 12:57 | PT.DAILY ---
Physical Therapy Daily Note PT Daily Note/Assess Start: 09/06/24 10:45 Freq: Status: Active Protocol: Document 09/08/24 12:33 DIANA (Rec: 09/08/24 12:57 [id number]) Physical Therapy Daily Note/Assessment Time In/Time Out Time In 11:40 Time Out 12:10 Pain In Pain N/A Pain Out Pain N/A Subjective Subjective Pt sitting in BS chair upon arrival. Agrees to PT. Needs to use restroom - agrees to walk to restroom vs using bedside commode. Pt c/o L knee pain but does not rate pain at this time. Therapeutic Exercise Time Therapeutic Exercise 8 Minutes (minutes) Therapeutic Exercise 1 Units Therapeutic Exercise Treatment Therapeutic Exercise Instructed to complete bilat AP, LAQ, marches, manually Treatment resisted ass squeezes and hip abduction, abduction step outs 10x ea. Needs increased time to complete and occ vc to stay on task. Therapeutic Activity Time Therapeutic Activity 15 Minutes (minutes) Therapeutic Activity 1 Units Therapeutic Activity Treatment Chair Transfer Minimum Assist Ability Therapeutic Activity Sit>stand from BS chair Maggie with vc to push from arm Comments rests vs pulling on RW. Pt amb 25' with RW, CGA. Increased time needed with amb due to short step length and decreased stance phase on L LE -heavy UE support on RW. Uses grab bar to descend on toilet safely. Pt requires assistance for pericare and to apply skin barrier cream. Pt amb 5' to sink to wash hands, CGA for safety but pt is steady with this. Pt amb 20' to BS chair with RW, CGA. Cont to c/o L knee pain. remains in BS chair upon completion with call light in reach and chair alarm set. Nursing notified of progress with amb and advised them to amb him to restroom vs BS commode if possible. Total Physical Therapy Time Total Therapy 23 Minutes Total Physical 2 Therapy Units Summary Daily Note Summary Improved transfer and gait ability.
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
[2024-09-08 13:48] VITALS: O2SAT 99
--- NOTE | 2024-09-08 14:46 | CM.NOTE ---
Dr. Lin aware of final urine culture, pt is on susceptible antibiotic.
[2024-09-08 16:18] VITALS: BP 164/69; PULSE 66; TEMP 36.5; O2SAT 98
[2024-09-08 20:00] VITALS: BP 128/59; PULSE 74; TEMP 36.6; O2SAT 96
[2024-09-08 20:46] VITALS: O2SAT 94
[2024-09-08] MEDS: ATORVASTATIN CALCIUM 40 MG TABLET 80 MG PO (21:17)
[2024-09-09] VITALS (9 sets, daily range): BP systolic 128–164; BP diastolic 55–70; PULSE 65–73; TEMP 36.4–36.8; O2SAT 93–98; BMI 19.0
[2024-09-09 05:56] LABS: Anion Gap 12.4; Blood Urea Nitrogen 20.0 mg/dL (7.0-18.0); Calcium 9.2 mg/dL (8.5-10.1); Carbon Dioxide 29.0 mmol/L (21.0-32.0); Chloride 106 mmol/L (98-107); Estimated GFR (African America >60 (>=60 mL/min/1.73m^2); Estimated GFR (Non-African Ame >60 (>=60 mL/min/1.73m^2); Glucose 193 mg/dL (74-106); Potassium 5.4 mmol/L (3.5-5.1); Sodium 142 mmol/L (136-145)
[2024-09-09 06:00] LABS: Hematocrit 26.5 % (42.0-54.0); Hemoglobin 8.3 g/dL (14.0-18.0); Immature Granulocytes Abs Auto 0.09 10^3/uL (0.00-0.03); Immature Granulocytes Pct Auto 1.4 % (0.0-0.5); Lymphocytes Absolute Auto 1.8 10^3/uL (1.2-3.8); Mean Corpuscular HGB Conc 31.3 g/dL (29.9-35.2); Mean Corpuscular Hemoglobin 27.2 pg (25.9-34.0); Mean Corpuscular Volume 86.9 fL (80.0-94.0); Platelet Count 223 10^3/uL (150-450); Red Blood Count 3.05 10^6/uL (4.70-6.10); White Blood Count 6.2 10^3/uL (4.0-11.0)
[2024-09-09] MEDS: PANTOPRAZOLE SODIUM 40 MG VIAL IV (08:36)
[2024-09-09] MEDS: CHOLECALCIFEROL (VITAMIN D3) 25 MCG/1,000 UNITS TABLET 50 MCG PO (08:36)
[2024-09-09] MEDS: ENSURE HP 237 ML LIQUID PO ×2 (08:36→21:09)
[2024-09-09] MEDS: METFORMIN HCL 500 MG TABLET 1000 MG PO ×2 (08:37→17:06)
[2024-09-09] MEDS: HEPARIN SODIUM (PORCINE) 5,000 UNIT/ML VIAL 5000 UNIT SUBQ ×2 (08:37→21:09)
[2024-09-09] MEDS: ASCORBIC ACID 500 MG TABLET 250 MG PO (08:37)
[2024-09-09] MEDS: MAGNESIUM OXIDE 400 MG TABLET PO ×2 (08:37→21:09)
[2024-09-09] MEDS: METOPROLOL TARTRATE 100 MG TABLET PO ×2 (08:37→21:09)
[2024-09-09] MEDS: ASPIRIN 81 MG TAB.CHEW PO (08:37)
[2024-09-09] MEDS: CLOPIDOGREL BISULFATE 75 MG TABLET PO (08:38)
[2024-09-09] MEDS: LISINOPRIL 20 MG TABLET PO (08:38)
[2024-09-09] MEDS: FERROUS SULFATE 325 MG TABLET PO (08:38)
[2024-09-09] MEDS: INSULIN GLARGINE 300 UNIT/3 ML INSULN.PEN 10 UNIT SQ (08:41)
[2024-09-09] MEDS: INSULIN ASPART 300 UNIT/3 ML PEN SUBQ ×3 (08:41→21:14)
[2024-09-09] MEDS: GLIPIZIDE 5 MG TABLET PO (08:44)
--- NOTE | 2024-09-09 09:00 | P.IMPN_ITS ---
Progress Note: A&P Assessment and Plan (1) Acute kidney injury: (2) UTI (urinary tract infection): (3) Dehydration: (4) Lactic acidosis: (5) Diabetes mellitus: (6) Hypokalemia: (7) Hypernatremia: (8) Iron deficiency anemia: (9) Coronary artery disease: (10) Acute metabolic encephalopathy: Plan Jayson Caceres is a 79 y/o M, h/o diabetes mellitus, iron deficiency anemia, CAD, admitted 09/05/24 with concerns for altered mentation as found by family member with multiple bedsores and soiled feces, found to have VARGHESE and evidence of UTI. Currently HD 4, symptomatically improved. 1. Acute metabolic encephalopathy 2/2 UTI in the setting of poorly controlled diabetes - UCx showed pansensitive klebsiella, abx switched to levofloxacin plan for 5 day course abx for complicated UTI - awaiting placement to SNF 2. Persistent diarrhea - present prior to admission - did order HIV testing for screening given BMI < 20, anemia, male UTI and unexplained diarrhea - C.diff, stool ova and parasites ordered 3. h/o diabetes mellitus, iron deficiency anemia, CAD - increased lantus to 15 units daily - hold jardiance given male UTI - continue metoprolol and lisinopril - continue iron supplementation Diet: Cardiac Lines/tubes: PIV VTE prophylaxis: sqh 5k q12h Code status: full Dispo: inpatient --> SNF pending precert Internal Medicine - PN: Subj Subjective Interval history: Comfortable out of bed to chair at present, needs, feels improved overall, sister at bedside endorses admission history. Does endorse recent intended weight loss with Ozempic. Exam Narrative Exam Narrative: Gen.: Awake, alert, in no distress, thin w/o bitemporal wasting Head: Normocephalic, atraumatic ENT: Moist mucous membranes Respiratory: No respiratory distress, lungs clear bilaterally Cardio: Regular rate and rhythm Gastrointestinal: Abdomen is soft, nondistended and nontender to palpation Extremities: Moves extremities equally Psych: Normal mood and affect Neuro: No focal neuro deficit Skin: Warm, dry, intact Constitutional Vital Signs, click to edit/add: Last Vital Signs Temp 97.6 F 09/09/24 07:34 Pulse 66 09/09/24 07:34 Resp 16 09/09/24 07:34 BP 138/70 09/09/24 07:34 Pulse Ox 95 09/09/24 07:34 O2 Del Method Room Air 09/09/24 07:34 Internal Medicine - PN: Obj Da Labs Labs: Laboratory Results - last 24 hr 09/08/24 09/08/24 09/08/24 11:02 16:05 17:50 WBC RBC Hgb Hct MCV MCH MCHC RDW Plt Count MPV Neut % (Auto) Lymph % (Auto) [place] % (Auto) Eos % (Auto) Baso % (Auto) Neut # (Auto) Lymph # (Auto) [place] # (Auto) Eos # (Auto) Baso # (Auto) Abs Immat Gran (auto) Imm/Tot Granulo (auto) Sodium Potassium Chloride Carbon Dioxide Anion Gap BUN Creatinine Est GFR ( Amer) Est GFR (Non-Af Amer) BUN/Creatinine Ratio Glucose Calcium POC Glucose 327 H 59 L 139 H 09/08/24 09/09/24 21:02 05:23 WBC 6.2 RBC 3.05 L Hgb 8.3 L Hct 26.5 L MCV 86.9 MCH 27.2 MCHC 31.3 RDW 18.0 H Plt Count 223 MPV 12.1 Neut % (Auto) 60.6 Lymph % (Auto) 28.8 [place] % (Auto) 7.1 Eos % (Auto) 1.9 Baso % (Auto) 0.2 Neut # (Auto) 3.8 Lymph # (Auto) 1.8 [place] # (Auto) 0.4 Eos # (Auto) 0.1 Baso # (Auto) 0.0 Abs Immat Gran (auto) 0.09 H Imm/Tot Granulo (auto) 1.4 H Sodium 142 Potassium 5.4 H Chloride 106 Carbon Dioxide 29.0 Anion Gap 12.4 BUN 20.0 H Creatinine 0.81 Est GFR ( Amer) >60 Est GFR (Non-Af Amer) >60 BUN/Creatinine Ratio 24.7 Glucose 193 H Calcium 9.2 POC Glucose 211 H
--- NOTE | 2024-09-09 09:30 | CM.NOTE ---
Rounds made with Dr. Lopez, discussed with pt plan of care. Pt continues with incontinence of bowel and bladder, will send stool specimen.
[2024-09-09] MEDS: INSULIN GLARGINE 300 UNIT/3 ML INSULN.PEN SQ (11:10)
--- NOTE | 2024-09-09 14:40 | PT.DAILY ---
Physical Therapy Daily Note PT Daily Note/Assess Start: 09/06/24 10:45 Freq: Status: Active Protocol: Document 09/09/24 14:37 DIANA (Rec: 09/09/24 14:40 DIANA [id number]) Physical Therapy Daily Note/Assessment Time In/Time Out Time In 14:12 Time Out 14:22 Pain In Pain N/A Pain Out Pain N/A Subjective Subjective Supine upon arrival. Agreeable to PT. C/O L knee pain. Therapeutic Exercise Time Therapeutic Exercise 5 Minutes (minutes) Therapeutic Exercise 0 Units Therapeutic Exercise Treatment Therapeutic Exercise Seated LE strengthening ex complete while sitting Treatment unsupported at EOB 10x ea. NO LOB with dynamic sitting ex. Therapeutic Activity Time Therapeutic Activity 5 Minutes (minutes) Therapeutic Activity 1 Units Therapeutic Activity Treatment Bed Mobility Ability Minimum Assist Chair Transfer Contact Guard Assist Ability Therapeutic Activity Supine>sit Thomas to advance upper body to sit EOB. Pt Comments able to sit EOB unsupported without LOB. Sit>stand CGA for safety. Pt amb 85' with RW, CGA. Short step length noticed. Returned to supine with Thomas to advance L LE. Pt remains supine with call light within reach and bed alarm activated. Total Physical Therapy Time Total Therapy 10 Minutes Total Physical 1 Therapy Units Summary Daily Note Summary Improved gait endurance. Cont to require Thomas for bed mobility. Would benefit from SNF to improve strength and transfer abilities to return to PLOF.
--- NOTE | 2024-09-09 14:42 | SWNOTE1 ---
ISAEL faxed updates to [facility]. ISAEL spoke to Darío at [facility] and pt did get approved, but they are still concerned about pt's senior care plan. ISAEL let Darío know that it is possible pt will want to return home at discharge from [facility] as he is feeling better and doing alright with therapy. SW to speak with pt again and Darío going to speak with sister. ISAEL also let Darío know that ISAEL did give family application for MD home as well.
--- NOTE | 2024-09-09 14:51 | SWNOTE1 ---
SW spoke to pt about his custodial plan. Pt is unsure at this time as it depends on how he feels.
--- NOTE | 2024-09-09 15:26 | SWNOTE1 ---
ISAEL called [facility] and spoke to Fatimah and updated her that pt is not discharging today.
[2024-09-09] MEDS: ATORVASTATIN CALCIUM 40 MG TABLET 80 MG PO (21:09)
[2024-09-10 03:00] VITALS: BP 144/61; PULSE 64; TEMP 36.8; O2SAT 96
[2024-09-10 05:38] LABS: Hematocrit 31.7 % (42.0-54.0); Hemoglobin 10.1 g/dL (14.0-18.0); Immature Granulocytes Abs Auto 0.10 10^3/uL (0.00-0.03); Immature Granulocytes Pct Auto 1.4 % (0.0-0.5); Lymphocytes Absolute Auto 2.1 10^3/uL (1.2-3.8); Mean Corpuscular HGB Conc 31.9 g/dL (29.9-35.2); Mean Corpuscular Hemoglobin 27.3 pg (25.9-34.0); Mean Corpuscular Volume 85.7 fL (80.0-94.0); Platelet Count 246 10^3/uL (150-450); Red Blood Count 3.70 10^6/uL (4.70-6.10); White Blood Count 7.0 10^3/uL (4.0-11.0)
[2024-09-10 05:56] LABS: Anion Gap 12.3; Blood Urea Nitrogen 29.0 mg/dL (7.0-18.0); Calcium 9.5 mg/dL (8.5-10.1); Carbon Dioxide 30.0 mmol/L (21.0-32.0); Chloride 105 mmol/L (98-107); Estimated GFR (African America >60 (>=60 mL/min/1.73m^2); Estimated GFR (Non-African Ame >60 (>=60 mL/min/1.73m^2); Glucose 198 mg/dL (74-106); Potassium 4.3 mmol/L (3.5-5.1); Sodium 143 mmol/L (136-145)
--- NOTE | 2024-09-10 07:42 | CM.NOTE ---
2nd Important Message From Medicare discussed with pt, pt denies questions or concerns.
--- NOTE | 2024-09-10 09:11 | PM.IMPN1 ---
Progress Note: A&P Assessment and Plan (1) Acute kidney injury: (2) UTI (urinary tract infection): (3) Dehydration: (4) Lactic acidosis: (5) Diabetes mellitus: (6) Hypokalemia: (7) Hypernatremia: (8) Iron deficiency anemia: (9) Coronary artery disease: (10) Acute metabolic encephalopathy: Internal Medicine - PN: Subj Subjective Interval history: Comfortable out of bed to chair at present, needs, feels improved overall, sister at bedside endorses admission history. Does endorse recent intended weight loss with Ozempic. Exam Constitutional Vital Signs, click to edit/add: Last Vital Signs Temp 98.2 F 09/10/24 03:00 Pulse 64 09/10/24 03:00 Resp 18 09/10/24 03:00 BP 144/61 H 09/10/24 03:00 Pulse Ox 96 09/10/24 03:00 O2 Del Method Room Air 09/10/24 03:00 Internal Medicine - PN: Obj Da Labs Labs: Laboratory Results - last 24 hr 09/09/24 09/09/24 09/09/24 10:46 11:06 15:30 WBC RBC Hgb Hct MCV MCH MCHC RDW Plt Count MPV Neut % (Auto) Lymph % (Auto) [place] % (Auto) Eos % (Auto) Baso % (Auto) Neut # (Auto) Lymph # (Auto) [place] # (Auto) Eos # (Auto) Baso # (Auto) Abs Immat Gran (auto) Imm/Tot Granulo (auto) Sodium Potassium Chloride Carbon Dioxide Anion Gap BUN Creatinine Est GFR ( Amer) Est GFR (Non-Af Amer) BUN/Creatinine Ratio Glucose Calcium HIV 1&2 Ag/Ab, 4th Gen Non reactive POC Glucose 284 H 72 L 09/09/24 09/10/24 21:13 05:02 WBC 7.0 RBC 3.70 L Hgb 10.1 L Hct 31.7 L MCV 85.7 MCH 27.3 MCHC 31.9 RDW 18.1 H Plt Count 246 MPV 11.3 Neut % (Auto) 60.1 Lymph % (Auto) 29.6 [place] % (Auto) 6.5 Eos % (Auto) 2.1 Baso % (Auto) 0.3 Neut # (Auto) 4.2 Lymph # (Auto) 2.1 [place] # (Auto) 0.5 Eos # (Auto) 0.2 Baso # (Auto) 0.0 Abs Immat Gran (auto) 0.10 H Imm/Tot Granulo (auto) 1.4 H Sodium 143 Potassium 4.3 Chloride 105 Carbon Dioxide 30.0 Anion Gap 12.3 BUN 29.0 H Creatinine 0.83 Est GFR ( Amer) >60 Est GFR (Non-Af Amer) >60 BUN/Creatinine Ratio 34.9 Glucose 198 H Calcium 9.5 HIV 1&2 Ag/Ab, 4th Gen POC Glucose 200 H
[2024-09-10] MEDS: MAGNESIUM OXIDE 400 MG TABLET PO (09:20)
[2024-09-10] MEDS: CHOLECALCIFEROL (VITAMIN D3) 25 MCG/1,000 UNITS TABLET 50 MCG PO (09:20)
[2024-09-10] MEDS: ASPIRIN 81 MG TAB.CHEW PO (09:20)
[2024-09-10] MEDS: ASCORBIC ACID 500 MG TABLET 250 MG PO (09:20)
[2024-09-10] MEDS: METOPROLOL TARTRATE 100 MG TABLET PO (09:20)
[2024-09-10] MEDS: PANTOPRAZOLE SODIUM 40 MG VIAL IV (09:20)
--- NOTE | 2024-09-10 09:20 | CM.NOTE ---
Rounds made with Dr. Lopez, pt will discharge to [facility] for skilled therapy.
[2024-09-10] MEDS: METFORMIN HCL 500 MG TABLET 1000 MG PO (09:21)
[2024-09-10] MEDS: HEPARIN SODIUM (PORCINE) 5,000 UNIT/ML VIAL 5000 UNIT SUBQ (09:21)
[2024-09-10] MEDS: LISINOPRIL 20 MG TABLET PO (09:21)
[2024-09-10] MEDS: ENSURE HP 237 ML LIQUID PO (09:21)
[2024-09-10] MEDS: GLIPIZIDE 5 MG TABLET PO (09:21)
[2024-09-10] MEDS: FERROUS SULFATE 325 MG TABLET PO (09:21)
[2024-09-10] MEDS: CLOPIDOGREL BISULFATE 75 MG TABLET PO (09:21)
[2024-09-10] MEDS: INSULIN ASPART 300 UNIT/3 ML PEN SUBQ (09:22)
[2024-09-10] MEDS: LEVOFLOXACIN IN DEXTROSE 5 % 750 MG/150 ML PREMIX 100 MG IV (09:30)
[2024-09-10] MEDS: INSULIN GLARGINE 300 UNIT/3 ML INSULN.PEN 20 UNIT SQ (09:35)
--- NOTE | 2024-09-10 10:33 | P.DS_ITS ---
DS: Providers Provider Date of admission: 09/06/24 07:29 Primary care physician: Vinnie Bui MD Admitting clinician: Jarad Lin Attending physician on admission: Jarad Lin Consults: 09/06/24 07:29 Consult to Pharmacy Routine Consulting Provider: Reason for consultation: Please [place] me when Med Rec is Updated Has provider been notified: No 09/06/24 09:00 Consult to [employer] Operator Routine Has provider been notified: No Reason for consult:: Other Other reason:: d/c planning Occupational Therapy Eval and Treat Routine Reason for consultation: weakness Has provider been notified: No Physical Therapy Eval and Treat Routine Reason for consultation: weakness Has provider been notified: No 09/06/24 09:50 Consult to Wound Care Routine Consulting Provider: Darío Menon Reason for consultation: multiple Has provider been notified: No 09/08/24 09:14 Consult to [employer] Operator Routine Reason for consult:: Housing/Senior Living Other reason:: If can find different living situation, ok for d/c to home Attending physician on discharge: BRIANNA RICHARDS Discharging clinician: BRIANNA RICHARDS Anticipated date of discharge: 09/10/24 DS: Diagnosis Discharge Diagnosis (1) Acute kidney injury: (2) UTI (urinary tract infection): (3) Dehydration: (4) Lactic acidosis: (5) Diabetes mellitus: (6) Hypokalemia: (7) Hypernatremia: (8) Iron deficiency anemia: (9) Coronary artery disease: (10) Acute metabolic encephalopathy: DS: Summary Hospital Course Hospital Course: Jayson Caceres is a 79 y/o M, h/o diabetes mellitus, iron deficiency anemia, CAD, admitted 09/05/24 with concerns for altered mentation as found by family member with multiple bedsores and soiled feces, found to have VARGHESE and evidence of severe sepsis suspected 2/2 UTI, acute kidney injury, and metabolic encephalopathy. Treated with IV antibiotics and IV hydration, mentation improved. UCx resulted rogers-sensitive klebsiella, narrowed to levofloxacin. Evaluated by PT/OT and placed at [facility]. Discharged on 09/10/24 in improved condition, discontinued jardiance given male UTI and uptitrated insulin regimen to be optimized as outpatient. Time Spent with Patient Time attestation: Total time spent providing and/or coordinating discharge services: Exam Narrative Exam Narrative: Gen.: Awake, alert, in no distress Head: Normocephalic, atraumatic ENT: Moist mucous membranes Respiratory: No respiratory distress, lungs clear bilaterally Cardio: Regular rate and rhythm Gastrointestinal: Abdomen is soft, nondistended and nontender to palpation Extremities: Moves extremities equally Psych: Normal mood and affect Neuro: No focal neuro deficit Skin: Warm, dry, intact Constitutional Vital Signs, click to edit/add: Last Vital Signs Temp 98.2 F 09/10/24 03:00 Pulse 64 09/10/24 03:00 Resp 18 09/10/24 03:00 BP 144/61 H 09/10/24 03:00 Pulse Ox 96 09/10/24 03:00 O2 Del Method Room Air 09/10/24 03:00 DS: Data Data Completed and Pending Labs on day of discharge: Labs from last 24 hours 09/10/24 09/09/24 09/09/24 05:02 21:13 15:30 WBC 7.0 RBC 3.70 L Hgb 10.1 L Hct 31.7 L MCV 85.7 MCH 27.3 MCHC 31.9 RDW 18.1 H Plt Count 246 MPV 11.3 Neut % (Auto) 60.1 Lymph % (Auto) 29.6 [place] % (Auto) 6.5 Eos % (Auto) 2.1 Baso % (Auto) 0.3 Neut # (Auto) 4.2 Lymph # (Auto) 2.1 [place] # (Auto) 0.5 Eos # (Auto) 0.2 Baso # (Auto) 0.0 Abs Immat Gran (auto) 0.10 H Imm/Tot Granulo (auto) 1.4 H Sodium 143 Potassium 4.3 Chloride 105 Carbon Dioxide 30.0 Anion Gap 12.3 BUN 29.0 H Creatinine 0.83 Est GFR ( Amer) >60 Est GFR (Non-Af Amer) >60 BUN/Creatinine Ratio 34.9 Glucose 198 H Calcium 9.5 HIV 1&2 Ag/Ab, 4th Gen POC Glucose 200 H 72 L 09/09/24 09/09/24 11:06 10:46 WBC RBC Hgb Hct MCV MCH MCHC RDW Plt Count MPV Neut % (Auto) Lymph % (Auto) [place] % (Auto) Eos % (Auto) Baso % (Auto) Neut # (Auto) Lymph # (Auto) [place] # (Auto) Eos # (Auto) Baso # (Auto) Abs Immat Gran (auto) Imm/Tot Granulo (auto) Sodium Potassium Chloride Carbon Dioxide Anion Gap BUN Creatinine Est GFR ( Amer) Est GFR (Non-Af Amer) BUN/Creatinine Ratio Glucose Calcium HIV 1&2 Ag/Ab, 4th Gen Non reactive POC Glucose 284 H Discharge Plan Discharge Disposition: Xfer SNF Condition: Good Discharge Medications: New levofloxacin 750 mg tablet 750 mg PO DAILY Qty: 3 0RF insulin aspart U-100 [Novolog FlexPen U-100 Insulin] 100 unit/mL (3 mL) Insulin Pen 5 unit subcut ACHS 30 Days Qty: 6 0RF Continued ascorbic acid (vitamin C) [Vitamin C] 250 mg tablet 250 mg PO DAILY aspirin 81 mg tablet 81 mg PO DAILY atorvastatin 80 mg tablet 80 mg PO DAILY cholecalciferol (vitamin D3) [Vitamin D3] 50 mcg (2,000 unit) tablet 50 mcg PO DAILY clopidogrel 75 mg tablet 75 mg PO DAILY cyanocobalamin (vitamin B-12) [Vitamin B-12] 1,000 mcg tablet 1,000 mcg PO DAILY ferrous sulfate 325 mg (65 mg iron) tablet 325 mg PO DAILY glipizide 5 mg tablet 5 mg PO DAILY ketotifen fumarate 0.025 % (0.035 %) drops 1 drp ophthalmic (eye) BID Rx Instructions: administer at least 8 hours apart lisinopril 20 mg tablet 20 mg PO DAILY magnesium oxide 400 mg magnesium tablet 800 mg PO BID metformin 1,000 mg tablet 1,000 mg PO BID metoprolol tartrate 100 mg tablet 100 mg PO BID omeprazole 20 mg capsule,delayed release(DR/EC) 40 mg PO BID Changed insulin glargine 100 unit/mL solution 20 unit subcut DAILY Qty: 0 0RF Discontinued Jardiance 25 mg tablet 25 mg PO DAILY Print Language: Italian Senior Telecommunications Consultant/Campus Interviews Intern Instructions: Discharge to [facility] skilled Forms: Portal Instructions Discharge Date/Time: 09/10/24 12:23
[2024-09-10 11:03] VITALS: O2SAT 96
--- NOTE | 2024-09-10 11:36 | SWNOTE1 ---
Pt is stable for discharge today. [facility] does not have transportation so we called [facility] and they can pickle water pump operator at 12:00p. SW notified nurse of pickle water pump operator time.
--- NOTE | 2024-09-10 11:38 | SWNOTE1 ---
Pt is going to [facility]. SW completed HENS online and faxed dc med rec.
--- NOTE | 2024-09-10 11:51 | SWNOTE1 ---
Called and spoke with pt's sister to let her know pt will be transported to the [facility] at 12:00.
== END 2024-09-10 12:23 | DRG 871 ==
LOC: ER 20:03 → MS 09-08 07:17
PROVIDERS: Physician Assistant; Registered Nurse; Student in an Organized Health Care Education/Training Program; Admitting Provider Family Medicine; Emergency Provider Emergency Medicine; PCP Family Medicine; Visit Provider Family Medicine
DX: A41.9 Sepsis, unspecified organism (principal); G93.41 Metabolic encephalopathy; N39.0 Urinary tract infection, site not specified; N17.9 Acute kidney failure, unspecified; E87.0 Hyperosmolality and hypernatremia; L97.829 Non-pressure chronic ulcer of other part of left lower leg with unspecified severity; R65.20 Severe sepsis without septic shock; L89.136 Pressure-induced deep tissue damage of right lower back; L89.226 Pressure-induced deep tissue damage of left hip; L89.216 Pressure-induced deep tissue damage of right hip; L89.156 Pressure-induced deep tissue damage of sacral region; B96.1 Klebsiella pneumoniae [K. pneumoniae] as the cause of diseases classified elsewhere; E11.65 Type 2 diabetes mellitus with hyperglycemia; E86.0 Dehydration; E87.6 Hypokalemia; D50.9 Iron deficiency anemia, unspecified; I25.10 Atherosclerotic heart disease of native coronary artery without angina pectoris; I10 Essential (primary) hypertension; R19.7 Diarrhea, unspecified; Z91.A98 Caregiver's noncompliance with patient's other medical treatment and regimen for other reason; Z79.85 Long-term (current) use of injectable non-insulin antidiabetic drugs; Z95.5 Presence of coronary angioplasty implant and graft; Z79.82 Long term (current) use of aspirin; Z79.899 Other long term (current) drug therapy; Z79.02 Long term (current) use of antithrombotics/antiplatelets; Z79.84 Long term (current) use of oral hypoglycemic drugs; Z59.89 Other problems related to housing and economic circumstances
CPT/HCPCS: 36415; 71045; 73562; 80048; 80053; 80076; 81001; 82550; 82553; 82948; 83036; 83605; 83735; 84443; 84484; 85025; 85027; 87070; 87086; 87088; 87177; 87186; 87209; 87389; 87493; 87880; 93005; 94667; 94668; 94761; 96361; 96365; 96372; 96375; 97110; 97162; 97165; 97530; 97535; 99285; A6213; G0328; G0378; J0696; J1644; J2405; J3475